=== PATIENT | male | born 1940 | race Caucasian/White ===

== ENCOUNTER 2017-03-10 12:44 | Emergency (ER) | payer OTHER, MEDICARE ==
[~2017-03-10] VITALS: Ht 177.8 cm; Wt 70.0 kg
[~2017-03-10 12:44] MED LIST: HYDR-3580 PO; SYNT25TA PO; TERA1CAP8 PO
[2017-03-10 12:54] VITALS: BP 149/70; PULSE 69; RESP 18; TEMP 98
[2017-03-10 12:57] VITALS: O2SAT 96
[2017-03-10 12:58] VITALS: BP 149/70; PULSE 67; RESP 18; TEMP 98; O2SAT 96
[2017-03-10 13:12] LABS: AUTOMATED NEUTROPHIL # 3.8 TH/MM3 (1.8-7.7); BASOPHIL % 0.7 % (0.0-2.0); EOSINOPHIL # 0.2 TH/MM3 (0-0.4); EOSINOPHIL % 4.3 % (0.0-4.0); HEMO FLAGS DIFF FINAL; LYMPH % 17.7 % (9.0-44.0); MEAN CELL VOLUME 86.4 FL (80.0-100.0); MEAN CORPUSCULAR HEMOGLOBIN 29.8 PG (27.0-34.0); MEAN CORPUSCULAR HGB CONC 34.5 % (32.0-36.0); MONO % 8.8 % (0.0-8.0); NEUT % 68.5 % (16.0-70.0); PLATELET COUNT 197 TH/MM3 (150-450); RED BLOOD COUNT 4.16 MIL/MM3 (4.50-5.90); RED CELL DISTRIBUTION WIDTH 12.9 % (11.6-17.2); WHITE BLOOD COUNT 5.5 TH/MM3 (4.0-11.0)
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
[2017-03-10 13:27] LABS: ANION GAP 6 MEQ/L (5-15); BICARBONATE 29.3 MEQ/L (21.0-32.0); BLOOD UREA NITROGEN 21 MG/DL (7-18); CHLORIDE 107 MEQ/L (98-107); GLOMERULAR FILTRATION RATE 138 ML/MIN (>89); POTASSIUM 3.8 MEQ/L (3.5-5.1); SODIUM (NA) 142 MEQ/L (136-145)
[2017-03-10] MEDS ORDERED: ACETAMINOPHEN/HYDROcodone 325 MG/10 MG TAB PO ONE (14:00)
[2017-03-10] MEDS ORDERED: ONDANSETRON HCL 4 MG/2 ML VIAL IV PUSH ONE (14:00)
[2017-03-10] MEDS ORDERED: MORPHINE SULFATE 4 MG/ML INJ IV PUSH ONE (14:00)
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
[2017-03-10] MEDS ORDERED: IOHEXOL 350 MG/ML 10 ML VIAL (for RAD DIAG) IV ONE (14:55)
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
[2017-03-10] MEDS ORDERED: DICL75TA PO (16:00)
--- NOTE | 2017-03-11 11:06 | EKG ---
Date Performed: 03/10/2017 Time Performed: 12:57:03 PTAGE: 77 years EKG: Sinus rhythm NORMAL ECG NO PREVIOUS TRACING DOCTOR: Uday Comer Interpretating Date/Time 03/11/2017 11:04:34
== END 2017-03-10 16:15 | disposition home or self-care (01) ==
LOC: NEPE 12:44
DX: S40.019A Contusion of unspecified shoulder, initial encounter (principal); S13.4XXA Sprain of ligaments of cervical spine, initial encounter; V43.52XA Car driver injured in collision with other type car in traffic accident, initial encounter
CPT/HCPCS: 70450; 71010; 71260; 72125; 73030; 73060; 80048; 84484; 85025; 93005; 99284; Q9967